=== PATIENT | female | born 2000 | race Caucasian/White ===

== ENCOUNTER → 2021-03-28 09:03 | Outpatient (CLI) | payer OTHER, SELFPAY ==
--- NOTE | 2021-03-28 09:06 | US_ITS ---
PROCEDURE: US ABDOMEN LIMITED CLINICAL INDICATION: UPPER ABD PAIN, NAUSEA AND VOMITING IN ADULT COMPARISON: No exams were available for comparison FINDINGS: PANCREAS: Unremarkable. No obvious mass or abnormal fluid collection. No ductal dilatation LIVER: No focal liver lesions demonstrated. Homogeneous echogenicity. No intrahepatic biliary ductal dilatation evident. There is appropriate direction of blood flow within a non dilated portal vein RIGHT KIDNEY: Unremarkable. Normal size and echogenicity. No hydronephrosis GALLBLADDER: No gallstones, gallbladder wall thickening, pericholecystic fluid, or biliary dilatation. IMPRESSION: Unremarkable limited abdominal ultrasound as detailed above disc Dictated by: Harlan Liz MD 03/29/2021 08:46 Harlan Liz MD in [place] 03/29/2021 08:46
== END ==
PROVIDERS: PCP Nurse Practitioner Family; Visit Provider Nurse Practitioner Family
DX: R10.10 Upper abdominal pain, unspecified (principal); R11.2 Nausea with vomiting, unspecified
CPT/HCPCS: 76705